=== PATIENT | female | born 1990 | race Caucasian/White ===

== ENCOUNTER 2017-08-20 07:39 | Inpatient (IN) | payer OTHER ==
--- NOTE | 2017-08-20 08:44 | PCM.LDHP ---
L&D History of Present Illness - General Date of Service: 08/20/17 Admit Problem/Dx: Patient Status Order with Admit Dx/Problem 08/20/17 07:45 Admission Status [Patient Status] [ADT] Routine 08/20/17 08:28 Patient Status [ADT] Routine Admission Diagnosis/Problem Admission Diagnosis/Problem -related examination Source of Information: Patient History Limitations: Reports: No Limitations - History of Present Illness Introduction:: 26-year-old female here because of gradual onset of labor she's due this week Timing/Duration: Reports: minutes: (10), gradual onset Location, : Reports: Abdomen Quality: Reports: Same as Previous Episode Improves with: Reports: None Worsens with: Reports: None Associated Symptoms: Denies: vaginal bleeding, vaginal clots, vaginal discharge , vaginal fluid - Related Data Allergies/Adverse Reactions: Allergies Allergy/AdvReac Type Severity Reaction Status Date / Time No Known Allergies Allergy Verified 05/18/14 07:31 Home Medications: Home Meds PNV95/Ferrous Fumarate/FA [ Tablet] 1 each PO DAILY 05/18/14 [History] Acetaminophen/Codeine [Tylenol with Codeine No.3 300MG/30MG] 1 tab PO Q4H PRN 30 Days tablet 05/20/14 [Rx] Docusate Sodium [Colace] 100 mg PO BID 30 Days cap 05/20/14 [Rx] Social & Family History - Family History Family Medical History: Noncontributory - Tobacco Use Smoking Status *Q: Never Smoker Second Hand Smoke Exposure: Yes - Alcohol Use Days Per Week of Alcohol Use: 0 - Recreational Drug Use Recreational Drug Use: No H&P Review of Systems - Review of Systems: Review Of Systems: ROS reveals no pertinent complaints other than HPI. L&D Exam - Exam Exam: See Below - Vital Signs Vital Signs: Last Vital Signs Temp 97.6 F 08/20/17 07:45 Pulse 87 08/20/17 07:45 Resp 17 08/20/17 07:45 BP 141/83 H 08/20/17 07:45 Pulse Ox 100 08/20/17 07:45 - OB Specific Contraction Intensity: Mild to Moderate Movement: Active Presentation: Vertex - Moe Score Moe Score Cervix Position: Midposition Moe Score Consistency: Soft Moe Score Effacement: >80% Moe Score Dilation: 3-4 cm - Exam General: Alert, Oriented HEENT: PERRLA, Conjunctiva Clear, EACs Clear, EOMI, Hearing Intact, Mucosa Moist & [place]oven[place] Life, Nares Patent, Normal Nasal Septum, Posterior Pharynx Clear, TMs Clear Neck: Supple, Trachea Midline Lungs: Clear to Auscultation, Normal Respiratory Effort Cardiovascular: Regular Rate, Regular Rhythm GI/Abdominal Exam: Normal Bowel Sounds, Soft, Non-Tender, No Organomegaly, No Distention, No Abnormal Bruit, No Mass, Pelvis Stable Rectal Exam: Normal Exam, Normal Rectal Tone Genitourinary: Normal external exam, Normal bimanual exam, Normal speculum exam Back Exam: Normal Inspection, Full Range of Motion Extremities: Normal Inspection, Normal Range of Motion, Non-Tender, No Pedal Edema, Normal Capillary Refill Skin: Warm, Dry, Intact Neurological: Cranial Nerves Intact, Reflexes Equal Bilateral Psychiatric: Alert, Normal Affect, Normal Mood - Problem List (1) Normal labor SNOMED Code(s): 89215680 ICD Code: O80 - ENCOUNTER FOR FULL-TERM UNCOMPLICATED DELIVERY; Z37.9 - OUTCOME OF DELIVERY, UNSPECIFIED Status: Acute Current Visit: Yes (2) Intrauterine SNOMED Code(s): 26306747 ICD Code: Z33.1 - STATE, INCIDENTAL Status: Acute Current Visit : No Problem List Initiated/Reviewed/Updated: Yes Orders Last 24hrs: Active Orders 24 hr Category Date Time Status Admission Status [Patient Status] [ADT] Routine ADT 08/20/17 07:45 Active Patient Status [ADT] Routine ADT 08/20/17 08:28 Active Assessment/Plan Comment:: I performed artificial rupture membranes revealing clear amniotic fluid. We'll continue observation and a digital neurologist if she is interested.
[2017-08-20] MEDS ORDERED: Lactated Ringers 1,000 ML IV ONE (08:45)
[2017-08-20] MEDS ORDERED: fentaNYL 300 MCG in Ropivacaine 200 ML EPIDUR ONE (09:26)
[2017-08-20] MEDS ORDERED: fentaNYL 100 MCG/2 ML SDV EPIDUR ONE (09:26)
[2017-08-20] MEDS ORDERED: Promethazine 12.5 MG in Sodium Chloride 0.9% 50 ML IV PRN (10:11)
[2017-08-20] MEDS ORDERED: diphenhydrAMINE 50 MG/ML SDV IV PRN (10:11)
[2017-08-20] MEDS ORDERED: ePHEDrine 50 MG/ML SDV IVPUSH PRN (10:11)
[2017-08-20] MEDS ORDERED: Ondansetron 4 MG/2 ML SDV IVPUSH PRN (10:11)
[2017-08-20] MEDS ORDERED: Naloxone 0.4 MG/ML SDV IVPUSH PRN (10:11)
[2017-08-20] MEDS ORDERED: Promethazine 6.25 MG in Sodium Chloride 0.9% 50 ML IV PRN (10:11)
[2017-08-20] MEDS ORDERED: Lactated Ringers 500 ML IV SCH (10:15)
[2017-08-20] MEDS: Lactated Ringers 1,000 ML IV SCH ×3 (10:50→16:00)
[2017-08-20] MEDS ORDERED: Misoprostol 200 MCG Tab VAG ONE (14:50)
[2017-08-20] MEDS ORDERED: Oxytocin 10 Units/1 ML SDV IM ONE (14:50)
[2017-08-20] MEDS ORDERED: Acetaminophen/Codeine 300-30 MG Tab PO PRN (15:12)
[2017-08-20] MEDS ORDERED: Sodium Chloride 0.9% 1,000 ML IV ONE (18:30)
[2017-08-20] MEDS: Ibuprofen 600 MG Tab PO PRN (19:38)
[2017-08-21] MEDS: Ibuprofen 600 MG Tab PO PRN ×2 (08:02→16:25)
--- NOTE | 2017-08-21 09:28 | DEL ---
DATE OF DELIVERY: 08/20/2017 PREOPERATIVE DIAGNOSIS: 39 weeks and 5 days intrauterine , in active labor. POSTOPERATIVE DIAGNOSES: 39 weeks and 5 days intrauterine , in active labor with delivery of a viable male infant, with scores of 8 and 9. PROCEDURES PERFORMED: 1. Spontaneous vaginal delivery. 2. Complex perineal laceration repair. ANESTHESIA: Epidural. INDICATIONS: This is a 26-year-old G2, P1, at 39 weeks and 5 days gestation. She presented with regular uterine contractions. Her course was uncomplicated. PROCEDURE DETAILS: The patient was noted to be complete and pushing. This pushing went on for about two hours. She was placed in the dorsal lithotomy position, and prepped and draped in the usual fashion for a vaginal delivery. The patient had received epidural analgesia previously. The patient was asked to push, and the head was delivered spontaneously in the JUAN position. The rest of the baby was delivered. There was no nuchal cord. The cord was cut and clamped. The baby was handed to the waiting nurses. The infant was noted to have spontaneous cry and movement of all four extremities. The cord was cut and clamped. Two arteries and one vein were noted. Placenta was delivered intact spontaneously with mild traction. The uterus was not explored. Ten units of Pitocin was given IM, plus bimanual massage was instituted. Inspection of the vagina revealed a right lateral complex laceration that was bleeding. A vaginal pack was placed, and the laceration was repaired by a 4-0 with assistance from the nurse. The vaginal pack was then removed. This was a second-degree laceration. The patient tolerated the procedure well. I did have to use 800 mcg of Cytotec to control hemostasis and decrease bleeding. COUNT RESULTS: All sponge and needle counts were correct after the entire procedure. /[id number] CRIS/DOTTIE
--- NOTE | 2017-08-21 20:16 | PCM.PNPP ---
- General Info Date of Service: 08/21/17 Functional Status: Reports: Pain Controlled, Tolerating Diet - Review of Systems General: Reports: No Symptoms HEENT: Reports: No Symptoms Pulmonary: Reports: No Symptoms Cardiovascular: Reports: No Symptoms Gastrointestinal: Reports: No Symptoms Genitourinary: Reports: No Symptoms Musculoskeletal: Reports: No Symptoms Skin: Reports: No Symptoms Neurological: Reports: No Symptoms Psychiatric: Reports: No Symptoms - General Info Date of Service: 08/21/17 - Patient Data Vital Signs - Most Recent: Last Vital Signs Temp 97.9 F 08/21/17 16:25 Pulse 69 08/21/17 16:25 Resp 16 08/21/17 16:25 BP 122/76 08/21/17 16:25 Pulse Ox 98 08/21/17 16:25 Weight - Most Recent: 77.111 kg I&O - Last 24 Hours: Intake & Output 08/21/17 08/21/17 08/21/17 06:59 14:59 22:59 Intake Total 240 Balance 240 Lab Results - Last 24 Hours: Laboratory Results - last 24 hr 08/21/17 Range/Units 06:21 WBC 14.9 H (4.5-12.0) X10-3/uL RBC 3.73 (3.23-5.20) x10(6)uL Hgb 11.0 L (11.5-15.5) g/dL Hct 32.9 (30.0-51.3) % MCV 88.3 (80-96) fL MCH 29.6 (27.7-33.6) pg MCHC 33.5 (32.2-35.4) g/dL RDW 14.1 (11.5-15.5) % Plt Count 112 L (125-369) X10(3)uL MPV 10.0 (7.4-10.4) fL Neut % (Auto) 80.9 (46-82) % Lymph % (Auto) 13.1 (13-37) % Reynolds % (Auto) 5.3 (4-12) % Eos % (Auto) 1 (1.0-5.0) % Baso % (Auto) 0 (0-2) % Neut # (Auto) 12.0 H (1.6-8.3) # Lymph # (Auto) 2.0 (0.6-5.0) # Reynolds # (Auto) 0.8 (0.0-1.3) # Eos # (Auto) 0.1 (0.0-0.8) # Baso # (Auto) 0.0 (0.0-0.2) # Med Orders - Current: Current Medications Acetaminophen/Codeine Phosphate (Tylenol With Codeine No.3 300mg/30mg) 1 tab PO Q4H PRN PRN Reason: Pain (moderate 4-6) Ibuprofen (Motrin) 600 mg PO Q4H PRN PRN Reason: Pain Last Admin: 08/21/17 16:25 Dose: 600 mg Multivit/Folic Acid/Iron (-U) 1 each PO DAILY DIAMOND Discontinued Medications Diphenhydramine HCl (Benadryl) 25 mg IV ONETIME PRN PRN Reason: Pruritus Ephedrine Sulfate (Ephedrine Sulfate) 5 mg IVPUSH ASDIRECTED PRN PRN Reason: SYSTOLIC BLOOD PRESSURE Fentanyl (Sublimaze) 100 mcg EPIDUR .STK-MED ONE Stop: 08/20/17 09:27 Promethazine HCl 6.25 mg/ (Sodium Chloride) 50.25 mls @ 200 mls/hr IV Q4H PRN PRN Reason: Nausea/Vomiting Promethazine HCl 12.5 mg/ (Sodium Chloride) 50.5 mls @ 200 mls/hr IV Q6H PRN PRN Reason: Nausea/Vomiting Lactated Ringer's (Ringers, Lactated) 1,000 mls @ 999 mls/hr IV ONETIME ONE Stop: 08/20/17 09:45 Last Admin: 08/20/17 08:45 Dose: 999 mls/hr Lactated Ringer's (Ringers, Lactated) 1,000 mls @ 125 mls/hr IV ASDIRECTED DIAMOND Last Admin: 08/20/17 16:00 Dose: 125 mls/hr Sodium Chloride (Normal Saline) 1,000 mls @ 999 mls/hr IV .BOLUS ONE Stop: 08/20/17 19:30 Last Admin: 08/20/17 18:30 Dose: 999 mls/hr Fentanyl 300 mcg/ Ropivacaine 206 mls @ as directed EPIDUR .STK-MED ONE Stop: 08/20/17 09:27 Misoprostol (Cytotec) 800 mcg VAG ONETIME ONE Stop: 08/20/17 14:51 Last Admin: 08/20/17 14:51 Dose: 800 mcg Naloxone HCl (Narcan) 0.1 mg IVPUSH ONETIME PRN PRN Reason: Sedation Ondansetron HCl (Zofran) 4 mg IVPUSH Q6H PRN PRN Reason: Nausea/Vomiting Oxytocin (Pitocin) 10 unit IM ONETIME ONE Stop: 08/20/17 14:51 Last Admin: 08/20/17 14:51 Dose: 10 unit - Infant Interaction Infant Disposition, : [place] at Bedside Support Person: - Recovery Exam Fundal Tone: Firm Fundal Level: At Umbilicus Fundal Placement: Midline Lochia Amount: Small Lochia Color: Rubra/Red Perineum Description: Edematous Episiotomy/Laceration: Approximated Bladder Status: Voiding Urinary Elimination: Voided - Exam General: Alert, Oriented HEENT: Pupils Equal Neck: Supple Lungs: Clear to Auscultation, Normal Respiratory Effort Cardiovascular: Regular Rate, Regular Rhythm GI/Abdominal Exam: Normal Bowel Sounds, Soft, Non-Tender, No Organomegaly, No Distention, No Abnormal Bruit, No Mass, Pelvis Stable Extremities: Normal Inspection, Normal Range of Motion, Non-Tender, No Pedal Edema, Normal Capillary Refill Skin: Warm, Dry, Intact Wound/Incisions: Healing Well Neurological: No New Focal Deficit Psy/Mental Status: Alert, Normal Affect, Normal Mood - Problem List & Annotations (1) Normal labor SNOMED Code(s): 06472166 Code(s): O80 - ENCOUNTER FOR FULL-TERM UNCOMPLICATED DELIVERY; Z37.9 - OUTCOME OF DELIVERY, UNSPECIFIED Status: Acute Current Visit: Yes (2) Intrauterine SNOMED Code(s): 89486457 Code(s): Z33.1 - STATE, INCIDENTAL Status: Acute Current Visit: No (3) care and examination SNOMED Code(s): 738655848, 101640062, 840065087 Code(s): Z39.2 - ENCOUNTER FOR ROUTINE FOLLOW-UP Status: Acute Current Visit: Yes - Problem List Review Problem List Initiated/Reviewed/Updated: Yes - My Orders Last 24 Hours: My Active Orders 08/22/17 09:00 Vit/FA/Fe Fumarate [-U] 1 each PO DAILY - Plan Plan:: day 1 doing well. Anticipate discharge tomorrow.
[2017-08-22] MEDS: Ibuprofen 600 MG Tab PO PRN (03:00)
[2017-08-22 09:00] VITALS: BP 120/75
[2017-08-22] MEDS ORDERED: Prenatal Multivitamin with Calcium/Folic Acid/Fe Fumarate Cap PO SCH (09:00)
--- NOTE | 2017-08-22 10:08 | PCM.PNPP ---
- General Info Date of Service: 08/22/17 Functional Status: Reports: Pain Controlled - Review of Systems General: Reports: No Symptoms HEENT: Reports: No Symptoms Pulmonary: Reports: No Symptoms Cardiovascular: Reports: No Symptoms Gastrointestinal: Reports: No Symptoms Genitourinary: Reports: No Symptoms Musculoskeletal: Reports: No Symptoms Skin: Reports: No Symptoms Neurological: Reports: No Symptoms Psychiatric: Reports: No Symptoms - General Info Date of Service: 08/22/17 - Patient Data Vital Signs - Most Recent: Last Vital Signs Temp 98.2 F 08/22/17 08:00 Pulse 75 08/22/17 08:00 Resp 18 08/22/17 08:00 BP 120/75 08/22/17 08:00 Pulse Ox 98 08/22/17 08:00 Weight - Most Recent: 77.111 kg Med Orders - Current: Current Medications Acetaminophen/Codeine Phosphate (Tylenol With Codeine No.3 300mg/30mg) 1 tab PO Q4H PRN PRN Reason: Pain (moderate 4-6) Ibuprofen (Motrin) 600 mg PO Q4H PRN PRN Reason: Pain Last Admin: 08/21/17 16:25 Dose: 600 mg Multivit/Folic Acid/Iron (-U) 1 each PO DAILY DIAMOND Last Admin: 08/22/17 09:06 Dose: 1 each Discontinued Medications Diphenhydramine HCl (Benadryl) 25 mg IV ONETIME PRN PRN Reason: Pruritus Ephedrine Sulfate (Ephedrine Sulfate) 5 mg IVPUSH ASDIRECTED PRN PRN Reason: SYSTOLIC BLOOD PRESSURE Fentanyl (Sublimaze) 100 mcg EPIDUR .STK-MED ONE Stop: 08/20/17 09:27 Promethazine HCl 6.25 mg/ (Sodium Chloride) 50.25 mls @ 200 mls/hr IV Q4H PRN PRN Reason: Nausea/Vomiting Promethazine HCl 12.5 mg/ (Sodium Chloride) 50.5 mls @ 200 mls/hr IV Q6H PRN PRN Reason: Nausea/Vomiting Lactated Ringer's (Ringers, Lactated) 1,000 mls @ 999 mls/hr IV ONETIME ONE Stop: 08/20/17 09:45 Last Admin: 08/20/17 08:45 Dose: 999 mls/hr Lactated Ringer's (Ringers, Lactated) 1,000 mls @ 125 mls/hr IV ASDIRECTED DIAMOND Last Admin: 08/20/17 16:00 Dose: 125 mls/hr Sodium Chloride (Normal Saline) 1,000 mls @ 999 mls/hr IV .BOLUS ONE Stop: 08/20/17 19:30 Last Admin: 08/20/17 18:30 Dose: 999 mls/hr Fentanyl 300 mcg/ Ropivacaine 206 mls @ as directed EPIDUR .STK-MED ONE Stop: 08/20/17 09:27 Misoprostol (Cytotec) 800 mcg VAG ONETIME ONE Stop: 08/20/17 14:51 Last Admin: 08/20/17 14:51 Dose: 800 mcg Naloxone HCl (Narcan) 0.1 mg IVPUSH ONETIME PRN PRN Reason: Sedation Ondansetron HCl (Zofran) 4 mg IVPUSH Q6H PRN PRN Reason: Nausea/Vomiting Oxytocin (Pitocin) 10 unit IM ONETIME ONE Stop: 08/20/17 14:51 Last Admin: 08/20/17 14:51 Dose: 10 unit - Infant Interaction Disposition, : at Bedside Support Person: - Recovery Exam Fundal Tone: Firm Fundal Level: 1 Fingerbreadths Below Umbilicus Fundal Placement: Midline Lochia Amount: Small, Moderate Lochia Color: Rubra/Red Perineum Description: Ecchymotic Episiotomy/Laceration: Approximated Bladder Status: Voiding Urinary Elimination: Voided - Exam General: Alert, Oriented HEENT: Pupils Equal Neck: Supple Lungs: Clear to Auscultation, Normal Respiratory Effort Cardiovascular: Regular Rate, Regular Rhythm GI/Abdominal Exam: Normal Bowel Sounds, Soft, Non-Tender, No Organomegaly, No Distention, No Abnormal Bruit, No Mass, Pelvis Stable Extremities: Normal Inspection, Normal Range of Motion, Non-Tender, No Pedal Edema, Normal Capillary Refill Skin: Warm, Dry, Intact Wound/Incisions: Healing Well Neurological: No New Focal Deficit Psy/Mental Status: Alert, Normal Affect, Normal Mood - Problem List & Annotations (1) Normal labor SNOMED Code(s): 34496130 Code(s): O80 - ENCOUNTER FOR FULL-TERM UNCOMPLICATED DELIVERY; Z37.9 - OUTCOME OF DELIVERY, UNSPECIFIED Status: Acute Current Visit: Yes (2) Intrauterine SNOMED Code(s): 88886058 Code(s): Z33.1 - STATE, INCIDENTAL Status: Acute Current Visit: No (3) care and examination SNOMED Code(s): 130920147, 238091085, 072079677 Code(s): Z39.2 - ENCOUNTER FOR ROUTINE FOLLOW-UP Status: Acute Current Visit: Yes - Problem List Review Problem List Initiated/Reviewed/Updated: Yes - My Orders Last 24 Hours: My Active Orders 08/22/17 09:00 Vit/FA/Fe Fumarate [-U] 1 each PO DAILY - Plan Plan:: day 2 doing well. Anticipate discharge today
--- NOTE | 2017-08-22 12:29 | DISCH ---
DISCHARGE DATE: 08/22/2017 REASON FOR ADMISSION: Labor. DISCHARGE DIAGNOSES: 1. Normal spontaneous vaginal delivery. 2. care and examination. PROCEDURES: Spontaneous vertex vaginal delivery and second-degree perineal tear repair. BRIEF HISTORY: This is a 26-year-old female, G2, P1, was admitted at term for labor when she presented with uterine contractions. She delivered vaginally, had a laceration in the right lateral wall that was repaired and she tolerated the procedure well, had a good period and is intent on breast- feeding. She will be discharged home on the . FOLLOW UP: In six weeks. Please note, I spent more than 35 minutes in the discharge of the patient. /[id number] CRIS/DOTTIE
== END 2017-08-22 11:40 | disposition home or self-care (01) | DRG 775 ==
LOC: FB.OBCHECK 07:39 → FB.OB 07:43 → FB.OBCHECK 07:44 → FB.OB 07:44 → OBSVTOIN 08:28
PROVIDERS: ADMIT Family Medicine; ATTEND Family Medicine
PROC: 10E0XZZ Delivery of Products of Conception, External Approach (ICD-10-PCS; principal; 2017-08-20)
PROC: 0KQM0ZZ Repair Perineum Muscle, Open Approach (ICD-10-PCS; 2017-08-20)
PROC: 10907ZC Drainage of Amniotic Fluid, Therapeutic from Products of Conception, Via Natural or Artificial Opening (ICD-10-PCS; 2017-08-20)
PROC: 00HU33Z Insertion of Infusion Device into Spinal Canal, Percutaneous Approach (ICD-10-PCS; 2017-08-20)
DX: O70.1 Second degree perineal laceration during delivery (principal); Z37.0 Single live birth; Z3A.39 39 weeks gestation of pregnancy
CPT/HCPCS: 36415; 51701; 59300; 59409; 85025; A9270-GY; J2590; J2795; J3010; J7040; J7120